=== PATIENT | male | born 1985 | race Two or more races ===

== ENCOUNTER 2021-12-01 20:35 | Emergency (ER) | payer MEDICAID, OTHER ==
[~2021-12-01] VITALS: Ht 182.9 cm; Wt 120.2 kg
[2021-12-01 21:34] VITALS: BP 117/84
== END 2021-12-02 07:53 | disposition left against medical advice (07) ==
LOC: ER 20:38
DX: R50.9 Fever, unspecified (principal); M54.50 Low back pain, unspecified; Z53.21 Procedure and treatment not carried out due to patient leaving prior to being seen by health care provider